=== PATIENT | male | born 1970 | race Caucasian/White ===

== ENCOUNTER 2017-06-26 09:11 | Inpatient (IN) ==
--- NOTE | 2017-06-25 21:51 | Discharge Summary ---
<ZainamauraJazmin zamudio Chau - Last Filed: 06/25/17 21:48> Date of Encounter: 06/25/17 - Discharge Diagnosis (1) Arthritis of knee, left Priority: Primary Status: Acute (2) Status post total knee replacement, left Priority: Primary Status: Acute (3) Obesity Priority: Secondary Status: Chronic Qualifiers: Obesity type: due to excess calories Obesity classification: unspecified obesity classification Serious obesity comorbidity presence: without serious comorbidity Qualified Code(s): E66.09 - Other obesity due to excess calories - Discharge Medications Home Medications: Aspirin Enteric Coated [Aspirin EC] 325 mg PO DAILY #21 tablet. 06/25/17 [Rx] OxyCODONE/APAP 5/325 [Percocet 5/325 MG] 1 - 2 each PO Q6HR PRN #40 tablet 06/25 [Rx] Gabapentin [Neurontin] 300 mg PO BID 06/26/17 [History] Allergies/Adverse Reactions: Allergies Penicillins Allergy (Verified 06/26/17 09:52) [place] Primary care physician: PCP NONE - Patient Status Disposition: Home, Self-Care Condition: Good - Discharge Instructions Follow Up With: NONE,PCP [Primary Care Provider] - - Hospital Course Hospital course: Mr. Obrien is a 47 year old male - Time Spent with Patient Total time spent providing and/or coordinating discharge services: <Anthony Kitchen - Last Filed: 06/27/17 06:45> Date of Encounter: 06/27/17 Time of Encounter: 06:44 - Discharge Diagnosis (1) Morbid obesity with BMI of 60.0-69.9, adult Priority: Secondary Status: Chronic (2) Arthritis of knee, left Priority: Primary Status: Chronic (3) Status post total knee replacement, left Priority: Primary Status: Acute Primary care physician: PCP NONE - Patient Status Functional capacity at discharge: uses cane/walker Overall status at discharge: patient is progressing back to baseline - Hospital Course Hospital course: Mr. Obrien is a 47 year old male Status post left total knee replacement The patient had an uneventful postoperative course. They received antibiotics and physical therapy and were discharged in stable condition. There will follow -up in the office in 2 weeks. - Time Spent with Patient Total time spent providing and/or coordinating discharge services:
[2017-06-26] MEDS ORDERED: Clindamycin 900 MG/50 ML 900 MG/50 ML IV.SOLN IVPB ONE (09:34)
[2017-06-26] MEDS ORDERED: Albuterol 2.5 MG/3 ML NEBULIZER IH ONE (09:34)
[2017-06-26] MEDS ORDERED: Ringers Solution, Lactated 1,000 ML IVC SCH ×2 (09:45→15:27)
--- NOTE | 2017-06-26 09:46 | Anesthesia Evaluation PreOp ---
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 06/25/17 [Rx] OxyCODONE/APAP 5/325 [Percocet 5/325 MG] 1 - 2 each PO Q6HR PRN #40 tablet 06/25 [Rx] Allergies Penicillins Allergy (Verified 10/17/15 21:17) Hives - Meds/Allergy Pre-op Review Medications Reviewed: Yes Allergies Reviewed: Yes Beta Blockers on Current Med List: No Anesthesia Results - Labs Laboratory Tests 06/21/17 06/21/17 06/21/17 10:10 10:10 10:10 Hgb 14.4 Hct 48.9 Plt Count 222 PT 10.7 INR 1.0 APTT 32.2 Sodium 140 Potassium 4.1 Creatinine 0.78 - Imaging EKG: report reviewed (12/04 sr) Anesthesia Exam O2 Sat Height 1.73 m Height 1.73 m Weight 183.705 kg Weight 183.705 kg O2 Sat by Pulse Oximetry 94 Vital Signs Temp Pulse Resp BP Pulse Ox 98.2 F 98 18 135/73 94 06/26/17 09:33 06/26/17 09:33 06/26/17 09:33 06/26/17 09:33 06/26/17 09:33 Height: 1.73 Weight: 182 NPO (# of Hours): >8 - HEENT Pupil (Motor): Pupils equal, EOMI Mallampati: II Teeth: Poor dentition Oral Opening: Greater than 3 (good underbite) - 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
--- NOTE | 2017-06-26 09:47 | History & Physical Report ---
Date of Encounter: 06/26/17 Time of Encounter: 09:47 24 Hour HP Update - Instructions Instructions: If the History and Physical is less than 30 days old and was completed prior to A.M. admission and or procedure and has NOT been updated on calendar day of procedure please complete this update prior to performing procedure. - Update Patient reports changes in Medical Condition: No Changes in examination, assessment, or condition: No Changes in Medication: No Preop tests/diagnostics Reviewed: Yes Surgery Remains Indicated: Yes Consent for Planned Operative Procedure(s) Verified: Yes - Pre-Operative Checklist Preoperative Checklist Indicated: No Prophylactic Antibiotic Ordered: Yes Is VTE Prophylaxis Indicated?: Yes
[2017-06-26] MEDS ORDERED: CloNIDine Patch 0.1 MG PATCH (WEEKLY) TD ONE (10:30)
[2017-06-26] MEDS ORDERED: *HR* FentaNYL (PF) 100 MCG/2 ML VIAL ONE ×2 (10:44→12:23)
[2017-06-26] MEDS ORDERED: *HR* Propofol 200 MG/20 ML VIAL IVP ONE (10:44)
[2017-06-26] MEDS ORDERED: *HR* Midazolam HCl 2 MG/2 ML VIAL ONE (10:44)
[2017-06-26] MEDS ORDERED: Dexamethasone 4 MG/ML VIAL ONE (10:45)
[2017-06-26] MEDS ORDERED: Ondansetron 4 MG/2 ML VIAL ONE (10:45)
[2017-06-26] MEDS ORDERED: Lidocaine -MPF 2% 2 ML VIAL ONE (10:45)
[2017-06-26] MEDS ORDERED: ROPIVACAINE HCL/PF 0.5% 30 ML VIAL ONE (11:18)
[2017-06-26] MEDS ORDERED: Bupivacaine/Clonidine Syringe 1 EACH SYRINGE ONE (11:19)
[2017-06-26] MEDS ORDERED: *HR* Succinylcholine 200 MG/10 ML VIAL IVP ONE (11:38)
[2017-06-26] MEDS ORDERED: Lidocaine -MPF 4% 5 ML AMPUL ONE (11:38)
--- NOTE | 2017-06-26 11:39 | Anesthesia Procedures ---
Date of Encounter: 06/26/17 Time of Encounter: 11:38 Procedures: Anesthesia - Nerve Block Procedure Date: 06/26/17 Time: 11:39 Allergies/Adv Reactions: pcn Pre-op Diagnosis: l knee oa Surgical Procedure: l tka Checklist: Correct Patient Identifier, Correct procedure, History checked Correct side: Left Blood Thinner: No Monitor Applied: EKG, BP, Pulse Oximetry Supplemental Oxygen via Nasal Cannula (L/min): 2 Sedation: Versed (mg): 2 Indication: Post Op Analgesia (request per dr negro) Pre-op Neuro Deficits: No Block Type: Femoral Catheter placed: No Sterile Technique: Yes Ultrasound used: Yes Anatomy identified: Yes Visual spread of Local: Yes Neuro Stimulation: Yes Nerve Stimulator Range: 0.2 - 0.4 mA Blood on Needle Aspiration: No Smooth Injection of Local: Yes Pain with Injection of Local: No Prep: Chlorhexadine Needle: 21 x 100 mm Stimuplex Local: 0.25% Bupivicaine w/Clonidine 20 mcg/cc (20cc), Other (ropi 0.5% 20cc) Volume (cc): 40 Number of Attempts: 1 Complications: None/effective block Vitals: see rn note
[2017-06-26] MEDS ORDERED: *HR* Rocuronium Bromide 50 MG/5 ML VIAL ONE (11:45)
[2017-06-26] MEDS ORDERED: *HR* Promethazine 25 MG/ML VIAL IVP PRN (12:17)
--- NOTE | 2017-06-26 13:05 | Orthopedic Operative Note ---
Date of procedure: 06/26/17 Pre-op diagnosis: Left knee arthritis Post-op diagnosis: same Procedure: Procedure: Left Total knee replacement Estimated blood loss: 500 cc Hardware: Metal and polyethylene replacement: Biomet Femur: 75, 18 x 120 stem Tibia: 83, 16 x 120 stem Nery insert: 10 Patella: 40 Exam Under anesthesia: Loss full extension 10 degrees flexion 90 degrees. Procedural Notes:Grade 4 arthritic changes in all 3 compartments Operative procedure: The patient was brought to the operating room and placed on the operating room table. After general anesthesia was administered the operative knee was examined. Findings were noted in the exam under anesthesia. The operative extremity was prepped and draped in sterile surgical fashion. The patient received IV antibiotics prior to skin incision. A standard midline incision was made centered over the patella. The incision was made through the skin and subcutaneous tissue. A medial parapatellar tendon approach was performed. Care was taken to preserve tissue along the medial aspect of the patella. And to protect the patella tendon. The deep MCL was released off the medial tibia. The infra patella fat pad was excised. Knee was brought into flexion. Patient noted to have grade 4 arthritic changes all 3 compartments. The entry hole was made for the intramedullary femoral guide. The guide was seated in 6 degrees of valgus. Anterior cut was made followed by the distal cut. The PCL the medial and the lateral menisci were excised. The tibia was subluxed forward. The entry hole was made for the intramedullary tibial guide. Guide was seated to resect 2 mm off the more abnormal side. The knee was brought into flexion the distal femur was sized to a 75 The femur was first reamed to a 18 x 120 The femoral guide was seated, the anterior cut was made followed by the posterior condylar cut, followed by the chamfer cuts. The finishing guide was seated the box cut was made. Trial had good fit and fixation The tibia was sized to a an 83 The tibia was first reamed 16 x 120 Trial reduction revealed full extension no varus valgus instability with the appropriate 10 insert. The patella was everted and cut was made at the level of the insertion of the quadriceps and patella tendon. The patella was sized to a 40 the guide was seated and the lug holes are drilled. Trial reduction revealed excellent patella tracking. All trial components were removed all bony surfaces were irrigated. Components were assembled on the back table. The femur was cemented first followed by the tibia. The 10 Nery was seated and secured. The knee was brought into full extension. The patella was cemented and held in place with the patellar holding clamp. After the cement had hardened, the knee sat for 2 minutes with a Betadine saline solution. The knee was then irrigated out with 2 L of pulse irrigation. The PA close the knee. The extensor mechanism was closed with #2 FiberWire suture and #2 PDS suture. The subcutaneous tissue was then irrigated and closed deep with #1 PDS suture superficially with 0 PDS suture and skin was closed with skin gretta The patient was then placed in a sterile dressing and a postoperative brace extubated and transferred to recovery room in stable condition. Anesthesia: JUDY Surgeon: Anthony Kitchen Condition: stable Disposition: PACU
[2017-06-26] MEDS: *HR* HYDROmorphone (PF) 1 MG/ML SYRINGE IVP PRN ×5 (13:47→23:15)
[2017-06-26] MEDS ORDERED: *HR* Labetalol 20 MG/4 ML SYRINGE IVP PRN (14:30)
[2017-06-26 14:56] LABS: Hematocrit 47.2 % (37.5-50.1); Hemoglobin 14.6 g/dL (12.9-16.9)
--- NOTE | 2017-06-26 14:57 | Anesthesia Evaluation Post Op ---
Date of Encounter: 06/26/17 Time of Encounter: 14:55 - Vital Signs Vital Signs: Vital Signs/O2 Sat/Glucose, Most Current Temp Pulse Resp BP Pulse Ox 06/26/17 14:50 97.4 F L 96 13 129/84 96 06/26/17 14:40 97.4 F L 93 14 133/76 95 06/26/17 14:30 96 12 143/83 96 06/26/17 14:20 93 8 132/99 96 06/26/17 14:10 97.7 F 96 13 157/107 93 06/26/17 14:00 98 14 154/102 90 06/26/17 13:50 98 23 150/96 90 06/26/17 13:40 97.9 F 99 20 139/95 95 06/26/17 11:35 89 16 120/77 94 06/26/17 11:19 82 16 123/67 95 06/26/17 11:04 84 16 130/81 92 - Lungs Lungs: Clear Ascult./Percussion - Airway Airway: Non-obstructed - Cardiovascular Regular Rate - Mental Status Mental Status: Alert & Oriented, Answers Appropriately - Pain Pain Scale: 2 - Nausea Vomiting Nausea Vomiting: Not Present - Hydration Hydration: Tolerates oral liquids Notes: 06/26/17 14:56 d/w rn, pt needs O2 x 24hrs
[2017-06-26] MEDS ORDERED: *HR* OxyCODONE Immed Rel 5 MG TABLET PO PRN (15:27)
[2017-06-26] MEDS ORDERED: Naloxone 0.4 MG/ML INJ IVP PRN (15:27)
[2017-06-26] MEDS ORDERED: Ondansetron 4 MG/2 ML VIAL IVP PRN (15:27)
[2017-06-26] MEDS ORDERED: MOM Conc 10 ML UD.LIQ PO PRN (15:27)
[2017-06-26] MEDS: *HR* OxyCODONE Immed Rel 5 MG TABLET PO PRN ×2 (16:39→20:48)
[2017-06-26] MEDS: Clindamycin 900 MG/50 ML 900 MG/50 ML IV.SOLN IVPB SCH ×2 (16:40→23:16)
[2017-06-26] MEDS: *HR* Enoxaparin 30 MG/0.3 ML SYRINGE SQ SCH (16:40)
[2017-06-26] MEDS ORDERED: *HR* Enoxaparin 30 MG/0.3 ML SYRINGE SQ SCH (18:00)
[2017-06-26] MEDS: Gabapentin 300 MG CAPSULE PO SCH (20:07)
[2017-06-26] MEDS ORDERED: Temazepam 15 MG CAPSULE PO PRN (21:00)
[2017-06-26] MEDS ORDERED: Sennosides 8.6 MG TABLET PO PRN (21:00)
[2017-06-27] MEDS: *HR* OxyCODONE Immed Rel 5 MG TABLET PO PRN ×4 (03:41→20:14)
[2017-06-27] MEDS: *HR* HYDROmorphone (PF) 1 MG/ML SYRINGE IVP PRN ×6 (04:36→23:37)
[2017-06-27] MEDS: *HR* Enoxaparin 30 MG/0.3 ML SYRINGE SQ SCH ×2 (04:36→17:37)
--- NOTE | 2017-06-27 06:46 | Orthopedics Progress Note ---
Date of Encounter: 06/27/17 Time of Encounter: 06:45 - Assessment and Plan (1) Morbid obesity with BMI of 60.0-69.9, adult Current Visit: Yes Status: Chronic (2) Arthritis of knee, left Current Visit: Yes Status: Chronic (3) Status post total knee replacement, left Current Visit: Yes Status: Acute Subjective Interval history: Patient was seen this morning doing well without complaints. Afebrile vital signs stable. Operative extremity: Neurovascularly intact Dressing clean dry and intact Calves nontender Assessment and plan: Continue with postoperative care Hematocrit 47 discharged today Objective Vital signs: Vital Signs Temp Pulse Resp BP Pulse Ox 06/27/17 04:13 98.4 F 98 17 106/72 94 06/26/17 23:50 98.4 F 102 17 126/78 94 06/26/17 17:35 98.8 F 101 18 107/69 93 06/26/17 16:10 97.7 F 99 12 104/77 92 06/26/17 15:45 98.2 F 101 12 118/72 92 06/26/17 15:00 98.4 F 94 12 118/72 93 06/26/17 14:50 97.4 F L 96 13 129/84 96 06/26/17 14:40 97.4 F L 93 14 133/76 95 06/26/17 14:30 96 12 143/83 96 06/26/17 14:20 93 8 132/99 96 06/26/17 14:10 97.7 F 96 13 157/107 93 06/26/17 14:00 98 14 154/102 90 06/26/17 13:50 98 23 150/96 90 06/26/17 13:40 97.9 F 99 20 139/95 95 06/26/17 11:35 89 16 120/77 94 06/26/17 11:19 82 16 123/67 95 06/26/17 11:04 84 16 130/81 92 06/26/17 09:55 98.2 F 98 18 135/73 94 06/26/17 09:33 98.2 F 98 18 135/73 94 Intake and Output 06/26/17 06/26/17 06/27/17 15:59 23:59 07:59 Intake Total 0 / 0 340 / 340 Output Total 500 / 500 500 / 500 Balance -500 / -500 -160 / -160 Intake: IV Fluids 50 / 50 Cleocin Premix 900 MG/50 50 / 50 ML 900 mg In 50 ml @ 50 mls/hr IVPB Q8HR [facility] Rx#: [id number] Oral 0 / 0 290 / 290 Output: Urine 0 / 0 500 / 500 Estimated Blood Loss 500 / 500 Other: Meal Dinner Percent of Meal Consumed 100% Weight 183.705 kg Blood Glucose* 131 - Labs CBC & BMP: 06/26/17 14:22 Labs: Abnormal lab results POC Glucose 112 (58-89) H 06/26/17 10:21 - VTE Documentation of Mechanical Device: Venous foot pump, device Consult Discharge Plan - Plan Referrals: NONE,PCP [Primary Care Provider] -
[2017-06-27 06:49] LABS: Hematocrit 42.2 % (37.5-50.1); Hemoglobin 13.2 g/dL (12.9-16.9)
[2017-06-27 06:58] LABS: BUN/Creatinine Ratio 17 (6-26); Blood Urea Nitrogen 14 mg/dL (8-26); Carbon Dioxide 32 mEq/L (19-29); Chloride 97 mEq/L (98-109); Glucose 142 mg/dL (70-99); Osmolality,Calculated 285 (280-300); Sodium 136 mEq/L (136-145); eGFR For African Americans > 60 (> 60); eGFR For Non-African Americans > 60 (> 60)
[2017-06-27] MEDS: Gabapentin 300 MG CAPSULE PO SCH ×2 (07:52→20:15)
--- NOTE | 2017-06-27 12:41 | Event Note ---
Date of Encounter: 06/27/17 Time of Encounter: 12:40 PCR - POD#1 - Left TKR Patient seen at bedside. Pain control: Yes Participating in PT. Recommending ECF All questions and concerns addressed. Educated on use of incentive spirometer, ambulation, and hydration. Patient educated on post-operative restrictions and care. Addressed: ECF placement D/C plan:. Awaiting ECF approval and auth.
--- NOTE | 2017-06-27 17:05 | Physician Discharge Referral ---
ExtendedCare Referral Info Transfer To: [facility] Provider in Charge: Provider in Charge after Transfer: PCP Institutional Level of Care: Skilled - Diagnosis (1) Arthritis of knee, left Priority: Primary Status: Chronic (2) Status post total knee replacement, left Priority: Primary Status: Acute (3) Obesity Priority: Secondary Status: Chronic Expected Duration of Placement: < 30 days Prognosis: Good Aware of Diagnosis: Patient Aware of Prognosis: Patient - Transfer Medications Home Medications: Aspirin Enteric Coated [Aspirin EC] 325 mg PO DAILY #21 tablet. 06/25/17 [Rx] OxyCODONE/APAP 5/325 [Percocet 5/325 MG] 1 - 2 each PO Q6HR PRN #40 tablet 06/25 [Rx] Gabapentin [Neurontin] 300 mg PO BID 06/26/17 [History] Acetaminophen 500 mg PO TID PRN 06/27/17 [History] Clindamycin HCl [Cleocin HCl] 300 mg PO TID 06/27/17 [History] Insulin Glargine [Lantus] 0 unit SQ DAILY 06/27/17 [History] Loperamide [Imodium] 2 mg PO Q4HR 06/27/17 [History] Loratadine [Claritin] 10 tab PO DAILY 06/27/17 [History] Nystatin Cream [Mycostatin Cream] 1 appl TP BID 06/27/17 [History] Omeprazole [PriLOSEC] 20 mg PO DAILY 06/27/17 [History] Ondansetron ODT [Zofran ODT] 4 mg SL Q6HR 06/27/17 [History] Pravastatin Sodium [Pravachol] 40 mg PO DAILY 06/27/17 [History] Quinapril HCl [Accupril] 10 mg PO DAILY 06/27/17 [History] Tramadol HCl [Ultram] 50 mg PO TID PRN 06/27/17 [History] Allergies/Adverse Reactions: Allergies Penicillins Allergy (Verified 06/26/17 09:52) Hives - Respiratory Orders None Smoking Cessation: Smoking cessation has been advised. For more information, call the [place] Tobacco Quit Line at 3-319-OQML-NOW. - Ancillary Orders May use pressure relief devices daily prn, May go on ALEXIA w/family/respon democrat w /meds at nurse discretion PRN, May consult with Dentist, Glassine Machine Tender, Supervisor Remelt PRN - Mobility Orders Chair, Ambulate - Rehabiliation Orders Rehab Potential: Good Rehab Orders: ROM Exercises, Evaluation for Physical Therapy, Evaluation for Occupational Therapy - Treatments Skin tear care topically daily PRN per policy List/Other: Opsite dressing, leave intact until first post-operative visit. If dressing becomes >50% saturated, contact office, remove dressing and place appropriate dressing in its place. Do not allow for dressing to get wet. Yoli in place, plan to remove at post-operative day #14-16. Total Joint Precautions x 6 weeks Apply cold therapy wrap 3-6x/day for 20 minutes at a time. Encourage ambulation throughout the day Use Incentive spirometer 10x/hour. Elevate affected extremity above heart as tolerated. Brace: Wear knee immobilizer at night x 2 week - Diet Orders Regular CERTIFICATION: I certify that the transfer of the above named patient to an Extended Care Facility is necessary for the continuing treatment of the diagnosis listed. The above information is true and accurate reflection of patient's current condition. Confidential - Redisclosure prohibited without a patient's written consent.
[2017-06-28] MEDS: *HR* OxyCODONE Immed Rel 5 MG TABLET PO PRN ×3 (00:59→10:56)
[2017-06-28] MEDS: *HR* HYDROmorphone (PF) 1 MG/ML SYRINGE IVP PRN ×2 (04:01→09:16)
[2017-06-28 05:15] LABS: BUN/Creatinine Ratio 16 (6-26); Blood Urea Nitrogen 12 mg/dL (8-26); Calcium 9.2 mg/dL (8.6-10.8); Carbon Dioxide 36 mEq/L (19-29); Chloride 94 mEq/L (98-109); Glucose 124 mg/dL (70-99); Osmolality,Calculated 281 (280-300); Potassium 4.5 mEq/L (3.5-4.5); Sodium 135 mEq/L (136-145); eGFR For African Americans > 60 (> 60); eGFR For Non-African Americans > 60 (> 60)
[2017-06-28 05:16] LABS: Hematocrit 38.5 % (37.5-50.1); Hemoglobin 11.9 g/dL (12.9-16.9)
[2017-06-28] MEDS: *HR* Enoxaparin 30 MG/0.3 ML SYRINGE SQ SCH (05:32)
--- NOTE | 2017-06-28 07:43 | Orthopedics Progress Note ---
Date of Encounter: 06/28/17 Time of Encounter: 07:43 - Assessment and Plan (1) Morbid obesity with BMI of 60.0-69.9, adult Current Visit: Yes Status: Chronic (2) Arthritis of knee, left Current Visit: Yes Status: Chronic (3) Status post total knee replacement, left Current Visit: Yes Status: Acute Subjective Interval history: Patient was seen this morning doing well without complaints. Afebrile vital signs stable. Operative extremity: Neurovascularly intact Dressing clean dry and intact Calves nontender Assessment and plan: Continue with postoperative care Hematocrit 38 discharged today Objective Vital signs: Vital Signs Temp Pulse Resp BP Pulse Ox 06/28/17 06:39 98.9 F 88 16 138/76 95 06/28/17 03:52 99.6 F 96 20 134/83 93 06/28/17 00:23 99.5 F 98 18 138/85 97 06/27/17 19:20 98.8 F 98 18 142/80 94 06/27/17 16:15 98.6 F 102 18 139/77 94 06/27/17 11:56 98.2 F 103 18 109/72 93 06/27/17 07:44 98.0 F 96 18 117/77 93 Intake and Output 06/27/17 06/27/17 06/28/17 15:59 23:59 07:59 Intake Total 450 / 450 Output Total 550 / 550 625 / 625 425 / 425 Balance -550 / -550 -625 / -625 25 / 25 Intake: Oral 450 / 450 Output: Urine 550 / 550 625 / 625 425 / 425 Other: Meal Dinner Percent of Meal Consumed 15% - Labs CBC & BMP: 06/28/17 04:17 06/28/17 04:17 Labs: Abnormal lab results Hgb 11.9 g/dL (12.9-16.9) L 06/28/17 04:17 Sodium 135 mEq/L (136-145) L 06/28/17 04:17 Chloride 94 mEq/L (98-109) L 06/28/17 04:17 Carbon Dioxide 36 mEq/L (19-29) H 06/28/17 04:17 Glucose 124 mg/dL (70-99) H 06/28/17 04:17 POC Glucose 112 (58-89) H 06/26/17 10:21 - VTE Documentation of Mechanical Device: Venous foot pump, device Consult Discharge Plan - Plan Referrals: Anthony Kitchen MD [Partnered Physician] - 07/26/17 4:55 pm Jazmin Bourgeois PAC [Physician Transcribing Operator Head] - 07/14/17 8:15 am NONE,PCP [Primary Care Provider] -
[2017-06-28] MEDS: Gabapentin 300 MG CAPSULE PO SCH (09:17)
[2017-06-28 11:50] VITALS: BP 129/78
--- NOTE | 2017-06-30 12:06 | Physician Discharge Referral ---
Home Health/Hosp Referral Info Transfer to: Home Health Provider in Charge Post Discharge: PCP - Diagnosis (1) Arthritis of knee, left Priority: Primary Status: Chronic (2) Status post total knee replacement, left Priority: Primary Status: Acute (3) Obesity Priority: Secondary Status: Chronic - Respiratory Orders None Smoking Cessation: Smoking cessation has been advised. For more information, call the [place] Tobacco Quit Line at 9-064-MNWP-NOW. - Dressing/Wound Care Type of Dressing/Treatments w/Frequency: Opsite dressing, leave intact until first post-operative visit. If dressing becomes >50% saturated, contact office, remove dressing and place appropriate dressing in its place. Do not allow for dressing to get wet. Yoli in place, plan to remove at post-operative day #14-16. Total Joint Precautions x 6 weeks Apply cold therapy wrap 3-6x/day for 20 minutes at a time. Encourage ambulation throughout the day Use Incentive spirometer 10x/hour. Elevate affected extremity above heart as tolerated. Brace: Wear knee immobilizer at night x 2 weeks. - Diet/Nutrition Diet/Nutrition Orders: Regular - Activity Activity Orders: Up ad goyo, Ambulate - Services Needed Following services are medically necessary services: Nursing, Home Health Aide, Physical Therapy, Occupational Therapy - Transfer Medications Home Medications: Aspirin Enteric Coated [Aspirin EC] 325 mg PO DAILY #21 tablet. 06/25/17 [Rx] OxyCODONE/APAP 5/325 [Percocet 5/325 MG] 1 - 2 each PO Q6HR PRN #40 tablet 06/25 [Rx] Gabapentin [Neurontin] 300 mg PO BID 06/26/17 [History] Acetaminophen 500 mg PO TID PRN 06/27/17 [History] Clindamycin HCl [Cleocin HCl] 300 mg PO TID 06/27/17 [History] Insulin Glargine [Lantus] 0 unit SQ DAILY 06/27/17 [History] Loperamide [Imodium] 2 mg PO Q4HR 06/27/17 [History] Loratadine [Claritin] 10 tab PO DAILY 06/27/17 [History] Nystatin Cream [Mycostatin Cream] 1 appl TP BID 06/27/17 [History] Omeprazole [PriLOSEC] 20 mg PO DAILY 06/27/17 [History] Ondansetron ODT [Zofran ODT] 4 mg SL Q6HR 06/27/17 [History] Pravastatin Sodium [Pravachol] 40 mg PO DAILY 06/27/17 [History] Quinapril HCl [Accupril] 10 mg PO DAILY 06/27/17 [History] Tramadol HCl [Ultram] 50 mg PO TID PRN 06/27/17 [History] Allergies/Adverse Reactions: Allergies Penicillins Allergy (Verified 06/26/17 09:52) Hives Certification: Further, I certify that my clinical findings support that this patient is homebound (i.e. absences from home require considerable and taxing effort and are for medical reasons or alevism services or infrequently or short duration when for other reasons) because: Homebound Reason: Post-surgery restriction and or conditions limit ability to leave home Attestation: My signature below is to certify that this patient is under my care and that I, or nurse practitioner, or a physician's assistant shift supervisor working with me, has a face-to -face encounter with this patient.
== END 2017-06-28 15:11 | disposition home or self-care (01) | DRG 470 ==
LOC: SAMDAY 09:11 → 3NENU 15:12
PROVIDERS: ADMIT Orthopaedic Surgery; ATTEND Orthopaedic Surgery

== ENCOUNTER 2019-12-15 21:27 | Observation (INO) ==
[2019-12-15 22:17] LABS: Immature Granulocytes % 0.4 % (0-4)
[2019-12-15 22:19] LABS: Basophils % 0.2 %; Eosinophils # 0.1 K/mcL (0.0-0.6); Eosinophils % 1.5 %; Hematocrit 38.1 % (37.5-50.1); Lymphocytes # 1.1 K/mcL (0.6-4.6); Lymphocytes % 11.4 %; Mean Corpuscular HGB Conc 26.2 g/dL (31.6-35.5); Mean Corpuscular Hemoglobin 20.8 pg (28.0-33.3); Mean Corpuscular Volume 79.4 fL (83.0-100.0); Mean Platelet Volume 9.1 fL (9.4-12.4); Monocytes # 0.4 K/mcL (0.0-1.3); Monocytes % 4.2 %; Neutrophils # 7.9 K/mcL (1.6-8.9); Platelet Count 241 K/mcL (140-400); Red Cell Distribution Width 17.8 % (11.5-14.5); Segmented Neutrophils % 82.3 %; White Blood Count 9.6 K/mcL (4.3-11.1)
[2019-12-15 22:20] LABS: Hypochromasia Present (Not Present)
[2019-12-15 22:22] LABS: VBG HCO3 34 mEq/L (21-27); VBG PCO2 51 mmHg (41-51); VBG PH 7.43 pH Units (7.32-7.42); VBG PO2 115 mmHg (25-50)
[2019-12-15 22:25] LABS: INR 1.5; Prothrombin Time 17.1 Seconds (9.4-12.1)
[2019-12-15 22:41] LABS: Alanine Aminotransferase 4 Units/L (7-52); Albumin 3.6 g/dL (3.5-5.7); Albumin/Globulin Ratio 1.1 (1.1-2.2); Alkaline Phosphatase 90 Units/L (34-104); Aspartate Amino Transferase 14 Units/L (13-39); BUN/Creatinine Ratio 17 (6-26); Bilirubin,Direct 0.1 mg/dL (0.0-0.2); Bilirubin,Indirect 0.2 mg/dL (0.0-1.0); Bilirubin,Total 0.3 mg/dL (0.3-1.0); Blood Urea Nitrogen 15 mg/dL (6-20); Calcium 8.8 mg/dL (8.6-10.3); Carbon Dioxide 33 mEq/L (23-29); Chloride 100 mEq/L (98-107); Globulin 3.3 g/dL (2.4-3.5); Glucose 114 mg/dL (70-105); Lipase 12 Units/L (11-82); Osmolality,Calculated 292 (280-300); Potassium 4.6 mEq/L (3.5-5.1); Sodium 140 mEq/L (136-145); Total Protein 6.9 g/dL (6.4-8.9); Troponin I < 0.03 ng/mL (< 0.04); eGFR For African Americans > 60 (> 60); eGFR For Non-African Americans > 60 (> 60)
[2019-12-15] MEDS: Isovue-370 500 ML BOTTLE IVP ONE (23:23)
[2019-12-16] MEDS ORDERED: Naloxone 0.4 MG/ML INJ IVP PRN (01:11)
[2019-12-16] MEDS ORDERED: Albuterol 2.5 MG/3 ML NEBULIZER IH PRN (01:25)
[2019-12-16] MEDS: *HR* OxyCODONE/APAP 7.5/325 TABLET PO PRN ×2 (01:52→08:58)
[2019-12-16] MEDS: Ipratropium/Albuterol Neb 3 ML IH SCH ×2 (03:52→10:45)
[2019-12-16 05:00] LABS: Hematocrit 36.4 % (37.5-50.1); Mean Corpuscular HGB Conc 27.5 g/dL (31.6-35.5); Mean Corpuscular Hemoglobin 20.6 pg (28.0-33.3); Mean Corpuscular Volume 75.1 fL (83.0-100.0); Mean Platelet Volume 9.2 fL (9.4-12.4); Platelet Count 268 K/mcL (140-400); Red Blood Count 4.85 M/mcL (4.19-5.50); Red Cell Distribution Width 18.1 % (11.5-14.5); White Blood Count 10.6 K/mcL (4.3-11.1)
[2019-12-16 05:19] LABS: BUN/Creatinine Ratio 19 (6-26); Blood Urea Nitrogen 17 mg/dL (6-20); Calcium 8.7 mg/dL (8.6-10.3); Carbon Dioxide 34 mEq/L (23-29); Chloride 97 mEq/L (98-107); Glucose 123 mg/dL (70-105); Osmolality,Calculated 295 (280-300); Potassium 4.1 mEq/L (3.5-5.1); Sodium 141 mEq/L (136-145); Troponin I < 0.03 ng/mL (< 0.04); eGFR For African Americans > 60 (> 60); eGFR For Non-African Americans > 60 (> 60)
[2019-12-16 05:21] LABS: % Iron Saturation 3 % (20-55); Iron 15 mcg/dL (65-175); Transferrin 378 mg/dL (203-362)
[2019-12-16 05:35] LABS: Ferritin 23 ng/mL (20-250)
[2019-12-16 07:40] LABS: Estimated Average Glucose 137 mg/dl
[2019-12-16] MEDS ORDERED: Furosemide 40 MG TABLET PO SCH (08:00)
[2019-12-16] MEDS ORDERED: Aspirin Enteric Coated 81 MG Tablet PO SCH (09:00)
[2019-12-16] MEDS ORDERED: *HR* Rivaroxaban 10 MG TABLET PO SCH (09:00)
[2019-12-16 10:39] VITALS: BP 132/74
[2019-12-16] MEDS ORDERED: Gabapentin 400 MG CAPSULE PO SCH (15:00)
[2019-12-16] MEDS ORDERED: Budesonide/Formoterol 80/4.5 1 PUFF INH IH SCH (22:00)
== END 2019-12-16 13:39 | disposition home or self-care (01) ==
LOC: 3BNU 21:27 → EMEROOARM 21:27 → SUATTDRO 12-16 00:58 → 3BNU 12-16 01:16
PROVIDERS: ADMIT Internal Medicine; ATTEND Internal Medicine

== ENCOUNTER 2020-01-12 14:13 | Inpatient (IN) ==
[~2020-01-12 14:13] MED LIST: Aminoglycoside Consult 1 EACH MC ONE
[2020-01-12] MEDS ORDERED: methylPREDNISolone 125 MG/2 ML VIAL IVP ONE (14:16)
[2020-01-12] MEDS ORDERED: Ipratropium/Albuterol Neb 3 ML IH ONE (14:16)
[2020-01-12 14:39] LABS: ABG Base Excess 13 mEq/L (-2 to 3); ABG HCO3 47 mEq/L (21-27); ABG Oxygen Saturation 77 % (95-98); ABG PCO2 118 mmHg (35-45); ABG PH 7.21 pH Units (7.32-7.45); ABG PO2 55 mmHg (85-104); ABG TCO2 > 50 mEq/L (20-26); Blood Gas Modality NIV; Blood Gas VT 560 cc
[2020-01-12 14:47] LABS: INR 1.3; Prothrombin Time 14.6 Seconds (9.4-12.1)
[2020-01-12] MEDS ORDERED: Azithromycin 500 MG in 0.9 % Sodium Chloride 250 ML IVPB ONE (14:52)
[2020-01-12] MEDS ORDERED: levoFLOXacin 750 MG/150 ML 750 MG/150 ML BAG IVPB ONE (15:00)
[2020-01-12 15:01] LABS: Alanine Aminotransferase 6 Units/L (7-52); Albumin 3.7 g/dL (3.5-5.7); Albumin/Globulin Ratio 1.1 (1.1-2.2); Alkaline Phosphatase 92 Units/L (34-104); Aspartate Amino Transferase 12 Units/L (13-39); BUN/Creatinine Ratio 16 (6-26); Bilirubin,Direct 0.1 mg/dL (0.0-0.2); Bilirubin,Indirect 0.2 mg/dL (0.0-1.0); Bilirubin,Total 0.3 mg/dL (0.3-1.0); Blood Urea Nitrogen 11 mg/dL (6-20); Calcium 8.6 mg/dL (8.6-10.3); Carbon Dioxide 42 mEq/L (23-29); Chloride 93 mEq/L (98-107); Globulin 3.5 g/dL (2.4-3.5); Glucose 131 mg/dL (70-105); Osmolality,Calculated 281 (280-300); Potassium 4.8 mEq/L (3.5-5.1); Sodium 135 mEq/L (136-145); Total Protein 7.2 g/dL (6.4-8.9); Troponin I < 0.03 ng/mL (< 0.04); eGFR For African Americans > 60 (> 60); eGFR For Non-African Americans > 60 (> 60)
[2020-01-12 15:27] LABS: Basophils % 0.4 %; Eosinophils # 0.1 K/mcL (0.0-0.6); Eosinophils % 0.7 %; Hematocrit 35.6 % (37.5-50.1); Immature Granulocytes % 1.8 % (0-4); Lymphocytes # 0.4 K/mcL (0.6-4.6); Lymphocytes % 5.3 %; Mean Corpuscular HGB Conc 25.3 g/dL (31.6-35.5); Mean Corpuscular Hemoglobin 20.7 pg (28.0-33.3); Mean Corpuscular Volume 81.8 fL (83.0-100.0); Mean Platelet Volume 9.2 fL (9.4-12.4); Monocytes # 0.5 K/mcL (0.0-1.3); Monocytes % 6.5 %; Neutrophils # 6.2 K/mcL (1.6-8.9); Nucleated Red Blood Cells 0.4 /100 WBC (0); Platelet Count 185 K/mcL (140-400); Red Blood Count 4.35 M/mcL (4.19-5.50); Red Cell Distribution Width 17.7 % (11.5-14.5); Segmented Neutrophils % 85.3 %; White Blood Count 7.3 K/mcL (4.3-11.1)
[2020-01-12] MEDS ORDERED: Naloxone 0.4 MG/ML INJ IVP PRN (15:55)
[2020-01-12] MEDS ORDERED: Cefepime HCl 1,000 MG in Water for inj. (sterile) 10 ML IVP ONE (16:00)
[2020-01-12] MEDS ORDERED: Ipratropium/Albuterol Neb 3 ML IH PRN (16:25)
[2020-01-12] MEDS ORDERED: Furosemide 40 MG/4 ML VIAL IVP ONE (16:30)
[2020-01-12] MEDS: Ipratropium/Albuterol Neb 3 ML IH SCH ×2 (19:46→21:59)
[2020-01-12 20:30] LABS: ABG Base Excess 13 mEq/L (-2 to 3); ABG HCO3 44 mEq/L (21-27); ABG Oxygen Saturation 95 % (95-98); ABG PCO2 91 mmHg (35-45); ABG PH 7.29 pH Units (7.32-7.45); ABG PO2 87 mmHg (85-104); ABG TCO2 47 mEq/L (20-26); Blood Gas Pressure Support 7 cm H2O
[2020-01-12] MEDS: *HR* Heparin 5,000 UNIT/ML VIAL SQ SCH (20:55)
[2020-01-12] MEDS: Budesonide/Formoterol 80/4.5 1 PUFF INH IH SCH (21:57)
[2020-01-13] MEDS: Cefepime HCl 2,000 MG in Water for inj. (sterile) 20 ML IVP SCH ×2 (00:08→07:41)
[2020-01-13] MEDS: *HR* OxyCODONE/APAP 7.5/325 TABLET PO PRN ×3 (00:08→16:12)
[2020-01-13 02:24] LABS: Basophils % 0.2 %; Nucleated Red Blood Cells 0.3 /100 WBC (0); Red Cell Distribution Width 18.1 % (11.5-14.5)
[2020-01-13 02:26] LABS: Hematocrit 40.9 % (37.5-50.1); Hemoglobin 10.2 g/dL (12.9-16.9); Immature Granulocytes % 0.9 % (0-4); Lymphocytes # 0.3 K/mcL (0.6-4.6); Lymphocytes % 4.4 %; Mean Corpuscular HGB Conc 24.9 g/dL (31.6-35.5); Mean Corpuscular Hemoglobin 20.2 pg (28.0-33.3); Mean Platelet Volume 9.6 fL (9.4-12.4); Monocytes # 0.1 K/mcL (0.0-1.3); Monocytes % 0.9 %; Platelet Count 210 K/mcL (140-400); Red Blood Count 5.05 M/mcL (4.19-5.50); Segmented Neutrophils % 93.6 %; White Blood Count 6.4 K/mcL (4.3-11.1)
[2020-01-13 02:43] LABS: BUN/Creatinine Ratio 20 (6-26); Blood Urea Nitrogen 14 mg/dL (6-20); Calcium 8.7 mg/dL (8.6-10.3); Carbon Dioxide 40 mEq/L (23-29); Chloride 93 mEq/L (98-107); Glucose 141 mg/dL (70-105); Magnesium 2.1 mg/dL (1.6-2.6); Osmolality,Calculated 287 (280-300); Phosphorous 4.5 mg/dL (2.7-4.5); Potassium 5.1 mEq/L (3.5-5.1); Sodium 137 mEq/L (136-145); eGFR For African Americans > 60 (> 60); eGFR For Non-African Americans > 60 (> 60)
[2020-01-13 03:18] LABS: Hypochromasia Present (Not Present); Platelet Estimate Normal (Normal)
[2020-01-13] MEDS: Ipratropium/Albuterol Neb 3 ML IH SCH ×4 (03:45→22:27)
[2020-01-13] MEDS ORDERED: D5% in Water 1,000 ML IVC PRN (04:21)
[2020-01-13] MEDS ORDERED: *HR* Dextrose 50 % in Water (Syg) 50 ML SYRINGE IVP PRN (04:21)
[2020-01-13] MEDS ORDERED: Dextrose Gel 15 GM/37.5 ML TUBE PO PRN ×2 (04:21)
[2020-01-13] MEDS: MethylPREDNISolone 40 MG/ML VIAL IVP SCH ×2 (06:28→17:25)
[2020-01-13] MEDS: *HR* Heparin 5,000 UNIT/ML VIAL SQ SCH ×3 (06:28→22:05)
[2020-01-13] MEDS: Azithromycin 500 MG in 0.9 % Sodium Chloride 250 ML IVPB SCH (07:45)
[2020-01-13] MEDS: Aspirin Enteric Coated 81 MG Tablet PO SCH (07:46)
[2020-01-13 08:09] LABS: ABG Base Excess 19 mEq/L (-2 to 3); ABG HCO3 52 mEq/L (21-27); ABG Oxygen Saturation 85 % (95-98); ABG PCO2 109 mmHg (35-45); ABG PH 7.28 pH Units (7.32-7.45); ABG PO2 61 mmHg (85-104); ABG TCO2 > 50 mEq/L (20-26)
[2020-01-13 08:18] LABS: Adenovirus Not Detected (Not Detect); Bordetella Pertussis Not Detected (Not Detect); Chlamydophila pneumoniae Not Detected (Not Detect); Coronavirus 229E Not Detected (Not Detect); Coronavirus HKU1 Not Detected (Not Detect); Coronavirus NL63 Not Detected (Not Detect); Coronavirus OC43 Not Detected (Not Detect); Human Metapneumovirus DETECTED (Not Detect); Human Rhinovirus/Enterovirus Not Detected (Not Detect); Influenza A Subtype 2009 H1 Not Detected (Not Detect); Influenza B Not Detected (Not Detect); Mycoplasma pneumoniae Not Detected (Not Detect); Parainfluenza Virus 1 Not Detected (Not Detect); Parainfluenza Virus 2 Not Detected (Not Detect); Parainfluenza Virus 3 Not Detected (Not Detect); Parainfluenza Virus 4 Not Detected (Not Detect); Respiratory Syncytial Virus Not Detected (Not Detect)
[2020-01-13] MEDS ORDERED: cefTRIAXone 1,000 MG in Water for inj. (sterile) 10 ML IVP SCH (09:00)
[2020-01-13] MEDS: Furosemide 20 MG/2 ML VIAL IVP SCH ×2 (09:50→22:04)
[2020-01-13] MEDS: Budesonide/Formoterol 80/4.5 1 PUFF INH IH SCH ×2 (11:07→22:27)
[2020-01-13] MEDS: Insulin LISPRO 300 UNITS/3 ML VIAL SQ SCH ×4 (11:11→22:05)
[2020-01-13] MEDS ORDERED: Aspirin 325 MG TABLET PO STA (15:30)
[2020-01-14] MEDS: Ipratropium/Albuterol Neb 3 ML IH SCH ×4 (03:52→21:52)
[2020-01-14] MEDS: *HR* Heparin 5,000 UNIT/ML VIAL SQ SCH ×3 (05:10→20:12)
[2020-01-14] MEDS: MethylPREDNISolone 40 MG/ML VIAL IVP SCH ×2 (05:10→17:04)
[2020-01-14] MEDS: *HR* OxyCODONE/APAP 7.5/325 TABLET PO PRN ×3 (05:14→19:44)
[2020-01-14 07:19] LABS: BUN/Creatinine Ratio 32 (6-26); Blood Urea Nitrogen 24 mg/dL (6-20); Calcium 9.1 mg/dL (8.6-10.3); Carbon Dioxide 43 mEq/L (23-29); Chloride 92 mEq/L (98-107); Glucose 135 mg/dL (70-105); Osmolality,Calculated 290 (280-300); Potassium 4.4 mEq/L (3.5-5.1); Sodium 137 mEq/L (136-145); eGFR For African Americans > 60 (> 60); eGFR For Non-African Americans > 60 (> 60)
[2020-01-14] MEDS: Insulin LISPRO 300 UNITS/3 ML VIAL SQ SCH ×4 (08:06→19:48)
[2020-01-14] MEDS: Furosemide 40 MG/4 ML VIAL IVP SCH ×2 (09:07→19:49)
[2020-01-14] MEDS: Aspirin Enteric Coated 81 MG Tablet PO SCH (09:07)
[2020-01-14] MEDS: Azithromycin 500 MG in 0.9 % Sodium Chloride 250 ML IVPB SCH (09:07)
[2020-01-14] MEDS: Acetylcysteine 10% 2 ML INHSOL IH SCH ×4 (10:51→21:52)
[2020-01-14] MEDS: Budesonide/Formoterol 80/4.5 1 PUFF INH IH SCH ×2 (11:14→21:52)
[2020-01-14] MEDS: Iron Sucrose Complex 200 MG in 0.9 % Sodium Chloride 100 ML IVPB SCH (11:45)
[2020-01-14] MEDS: Gabapentin 400 MG CAPSULE PO SCH ×2 (14:10→19:45)
[2020-01-15] MEDS: *HR* OxyCODONE/APAP 7.5/325 TABLET PO PRN ×3 (03:48→18:29)
[2020-01-15 04:11] LABS: ABG Base Excess 19 mEq/L (-2 to 3); ABG HCO3 49 mEq/L (21-27); ABG Oxygen Saturation 84 % (95-98); ABG PCO2 87 mmHg (35-45); ABG PH 7.36 pH Units (7.32-7.45); ABG PO2 54 mmHg (85-104); ABG TCO2 > 50 mEq/L (20-26)
[2020-01-15] MEDS: Acetylcysteine 10% 2 ML INHSOL IH SCH ×2 (04:44→10:31)
[2020-01-15] MEDS: Ipratropium/Albuterol Neb 3 ML IH SCH ×4 (04:44→21:27)
[2020-01-15 05:06] LABS: Hematocrit 40.1 % (37.5-50.1); Hemoglobin 10.5 g/dL (12.9-16.9)
[2020-01-15 05:30] LABS: BUN/Creatinine Ratio 35 (6-26); Blood Urea Nitrogen 25 mg/dL (6-20); Calcium 9.2 mg/dL (8.6-10.3); Carbon Dioxide 45 mEq/L (23-29); Chloride 89 mEq/L (98-107); Glucose 129 mg/dL (70-105); Osmolality,Calculated 294 (280-300); Potassium 4.4 mEq/L (3.5-5.1); Sodium 139 mEq/L (136-145); eGFR For African Americans > 60 (> 60); eGFR For Non-African Americans > 60 (> 60)
[2020-01-15] MEDS: MethylPREDNISolone 40 MG/ML VIAL IVP SCH ×2 (06:21→18:29)
[2020-01-15] MEDS: *HR* Heparin 5,000 UNIT/ML VIAL SQ SCH ×3 (06:21→22:52)
[2020-01-15] MEDS: Aspirin Enteric Coated 81 MG Tablet PO SCH (10:21)
[2020-01-15] MEDS: Gabapentin 400 MG CAPSULE PO SCH ×3 (10:21→22:52)
[2020-01-15] MEDS: Furosemide 40 MG/4 ML VIAL IVP SCH (10:21)
[2020-01-15] MEDS: Azithromycin 500 MG in 0.9 % Sodium Chloride 250 ML IVPB SCH (10:21)
[2020-01-15] MEDS: Insulin LISPRO 300 UNITS/3 ML VIAL SQ SCH ×3 (10:22→17:00)
[2020-01-15] MEDS: Budesonide/Formoterol 80/4.5 1 PUFF INH IH SCH ×2 (10:31→21:27)
[2020-01-15] MEDS: Iron Sucrose Complex 200 MG in 0.9 % Sodium Chloride 100 ML IVPB SCH (11:47)
[2020-01-16] MEDS: Insulin LISPRO 300 UNITS/3 ML VIAL SQ SCH ×5 (00:33→22:53)
[2020-01-16] MEDS: *HR* OxyCODONE/APAP 7.5/325 TABLET PO PRN ×4 (02:09→22:53)
[2020-01-16] MEDS: Ipratropium/Albuterol Neb 3 ML IH SCH ×2 (03:47→10:19)
[2020-01-16] MEDS: MethylPREDNISolone 40 MG/ML VIAL IVP SCH ×3 (05:56→22:53)
[2020-01-16] MEDS: *HR* Heparin 5,000 UNIT/ML VIAL SQ SCH ×3 (05:56→22:54)
[2020-01-16] MEDS: Budesonide/Formoterol 80/4.5 1 PUFF INH IH SCH (10:19)
[2020-01-16] MEDS: Azithromycin 500 MG in 0.9 % Sodium Chloride 250 ML IVPB SCH (10:38)
[2020-01-16] MEDS: Aspirin Enteric Coated 81 MG Tablet PO SCH (10:39)
[2020-01-16] MEDS: Gabapentin 400 MG CAPSULE PO SCH ×3 (10:39→22:54)
[2020-01-16] MEDS ORDERED: GuaiFENesin Liq 200 MG/10 ML UDC PO PRN (11:56)
[2020-01-16] MEDS: Isovue-370 500 ML BOTTLE IVP ONE (13:10)
[2020-01-16] MEDS: Budesonide/Formoterol 160/4.5 1 PUFF INH IH SCH ×2 (13:51→19:40)
[2020-01-16] MEDS: Albuterol 2.5 MG/3 ML NEBULIZER IH SCH ×4 (13:53→23:34)
[2020-01-16] MEDS: Acetylcysteine 10% 2 ML INHSOL IH SCH ×2 (13:53→19:40)
[2020-01-16] MEDS: Furosemide 40 MG/4 ML VIAL IVP SCH ×2 (14:27→22:53)
[2020-01-16] MEDS: Iron Sucrose Complex 200 MG in 0.9 % Sodium Chloride 100 ML IVPB SCH (14:28)
[2020-01-16] MEDS: Cefepime HCl 2,000 MG in 0.9 % Sodium Chloride Mini Bag 100 ML IVPB SCH ×2 (15:58→17:13)
[2020-01-17 03:17] LABS: BUN/Creatinine Ratio 33 (6-26); Blood Urea Nitrogen 26 mg/dL (6-20); Calcium 9.1 mg/dL (8.6-10.3); Carbon Dioxide 39 mEq/L (23-29); Chloride 93 mEq/L (98-107); Glucose 104 mg/dL (70-105); Magnesium 2.2 mg/dL (1.6-2.6); Osmolality,Calculated 287 (280-300); Phosphorous 2.9 mg/dL (2.7-4.5); Potassium 4.5 mEq/L (3.5-5.1); Sodium 136 mEq/L (136-145); eGFR For African Americans > 60 (> 60); eGFR For Non-African Americans > 60 (> 60)
[2020-01-17] MEDS: MethylPREDNISolone 40 MG/ML VIAL IVP SCH ×2 (03:18→11:56)
[2020-01-17] MEDS: Albuterol 2.5 MG/3 ML NEBULIZER IH SCH ×4 (03:44→16:31)
[2020-01-17] MEDS: Acetylcysteine 10% 2 ML INHSOL IH SCH (03:45)
[2020-01-17] MEDS: Cefepime HCl 2,000 MG in 0.9 % Sodium Chloride Mini Bag 100 ML IVPB SCH (05:22)
[2020-01-17] MEDS: *HR* Heparin 5,000 UNIT/ML VIAL SQ SCH ×2 (05:23→15:39)
[2020-01-17] MEDS: *HR* OxyCODONE/APAP 7.5/325 TABLET PO PRN ×2 (05:30→12:07)
[2020-01-17 07:10] LABS: Basophils % 0.1 %; Hemoglobin 11.2 g/dL (12.9-16.9)
[2020-01-17 07:11] LABS: Hematocrit 42.9 % (37.5-50.1); Immature Granulocytes % 1.1 % (0-4); Lymphocytes # 0.6 K/mcL (0.6-4.6); Lymphocytes % 7.1 %; Mean Corpuscular HGB Conc 26.1 g/dL (31.6-35.5); Mean Corpuscular Hemoglobin 20.8 pg (28.0-33.3); Mean Corpuscular Volume 79.7 fL (83.0-100.0); Mean Platelet Volume 8.6 fL (9.4-12.4); Monocytes # 0.1 K/mcL (0.0-1.3); Monocytes % 1.4 %; Neutrophils # 7.5 K/mcL (1.6-8.9); Nucleated Red Blood Cells 0.4 /100 WBC (0); Platelet Count 212 K/mcL (140-400); Red Blood Count 5.38 M/mcL (4.19-5.50); Red Cell Distribution Width 19.3 % (11.5-14.5); Segmented Neutrophils % 90.3 %; White Blood Count 8.3 K/mcL (4.3-11.1)
[2020-01-17 07:25] LABS: Platelet Estimate Normal (Normal)
[2020-01-17] MEDS: Budesonide/Formoterol 160/4.5 1 PUFF INH IH SCH (07:25)
[2020-01-17 08:22] VITALS: BP 125/80
[2020-01-17] MEDS: Insulin LISPRO 300 UNITS/3 ML VIAL SQ SCH ×2 (09:22→12:07)
[2020-01-17] MEDS: Furosemide 40 MG/4 ML VIAL IVP SCH (09:23)
[2020-01-17] MEDS: Gabapentin 400 MG CAPSULE PO SCH ×2 (09:23→16:12)
[2020-01-17] MEDS: Aspirin Enteric Coated 81 MG Tablet PO SCH (09:23)
[2020-01-17] MEDS: Azithromycin 500 MG in 0.9 % Sodium Chloride 250 ML IVPB SCH (09:23)
[2020-01-17] MEDS: Iron Sucrose Complex 200 MG in 0.9 % Sodium Chloride 100 ML IVPB SCH (11:05)
[2020-01-17] MEDS ORDERED: FLU Vac QV 19-20 (6Month+)/PF 0.5 ML SYRINGE IM ONE (13:29)
== END 2020-01-17 16:33 | disposition home or self-care (01) ==
LOC: EMEROOARM 14:13 → SUATTDRO 16:05 → 2NNU 16:05 → 2NENU 01-13 10:21
PROVIDERS: ADMIT Internal Medicine; ATTEND Internal Medicine